=== PATIENT | female | born 1940 | race Caucasian/White ===

== ENCOUNTER 2022-03-20 08:13 | Outpatient (CLI) | payer MEDICARE, OTHER ==
--- NOTE | 2022-03-20 09:56 | Ultrasound Report ---
PROCEDURE: Abdomen Limited INDICATIONS: RUQ ABD PAIN TECHNIQUE: Real-time focused scanning was performed of the abdomen, with image documentation. COMPARISON: None FINDINGS: Liver measures 11 to 12 cm. Overall echogenicity is heterogeneous and increased. Main port al vein is patent. Gallbladder within normal limits. CBD measures up to 6 mm, within normal limits. Visualized pancreas unremarkable, limited visualization due to bowel gas. Right kidney measures 10.4 cm. Suspected 5 mm right upper pole stone. No significant hydronephrosis. IMPRESSION: Unremarkable sonographic appearance of the gallbladder. No pathologic dilation of the biliary tree fo r age. Mildly coarsened echogenic liver may be seen with chronic fibrofatty infiltration. Main portal vein i s patent. Suspected right upper pole renal 5 mm calculus without hydronephrosis. Reviewed by: Scot Islas MD on 03/20/2022 9:54 AM PST Approved by: Scot Islas MD on 03/20/2022 9:54 AM PST Station ID: [id number]
== END 2022-03-20 08:14 | disposition home or self-care (01) ==
LOC: DI 08:13
PROVIDERS: ATTEND Student in an Organized Health Care Education/Training Program
DX: R10.11 Right upper quadrant pain (principal)

== ENCOUNTER 2022-04-23 11:09 | Outpatient (CLI) | payer MEDICARE, OTHER | END 2022-04-23 11:10 | disposition home or self-care (01) | LOC: RT 11:09 | PROVIDERS: ATTEND Student in an Organized Health Care Education/Training Program | DX: R05.9 Cough, unspecified (principal); R06.02 Shortness of breath | CPT/HCPCS: 94010; 94727; 94729 ==

== ENCOUNTER 2023-02-05 12:29 | Outpatient (CLI) | payer MEDICARE, OTHER ==
--- NOTE | 2023-02-05 13:14 | XRAY Report ---
PROCEDURE: Hip w/Pelvis 2-3V LT INDICATIONS: LEFT HIP PAIN TECHNIQUE: AP pelvis with lateral view(s) of the left hip(s). COMPARISON: None. FINDINGS: Bones: No fractures or dislocations. Mild degenerative changes of the bilateral hips. No suspicious bony lesions. Soft tissues: No suspicious soft tissue calcifications or masses. IMPRESSION: No acute bony abnormality. Mild degenerative changes of the bilateral hips. Reviewed by: Duy Bhagat MD on 02/05/2023 1:12 PM PST Approved by: Duy Bhagat MD on 02/05/2023 1:12 PM PST Station ID: [id number]
== END 2023-02-05 12:30 | disposition home or self-care (01) ==
LOC: DI 12:29
PROVIDERS: ATTEND Nurse Practitioner Family
DX: M16.0 Bilateral primary osteoarthritis of hip (principal)

== ENCOUNTER 2023-04-23 11:03 | Outpatient (CLI) | payer MEDICARE, OTHER ==
--- NOTE | 2023-04-23 19:41 | XRAY Report ---
PROCEDURE: Chest 2V INDICATIONS: CHRONIC COUGH TECHNIQUE: 2 views of the chest were obtained. COMPARISON: None. FINDINGS: Surgical changes and devices: None. Lungs and pleura: No pleural effusions or pneumothorax. Lungs are clear. Mediastinum: Mediastinal contours appear normal. Heart size is normal. Bones and chest wall: No suspicious bony lesions. Overlying soft tissues appear unremarkable. IMPRESSION: No acute cardiopulmonary findings Reviewed by: Niles Patel MD on 04/23/2023 6:39 PM [facility] Approved by: Niles Patel MD on 04/23/2023 6:39 PM [place] Station ID: [id number]
== END 2023-04-23 11:04 | disposition home or self-care (01) ==
LOC: DI 11:03
PROVIDERS: ATTEND Nurse Practitioner Family
DX: R05.3 Chronic cough (principal)

== ENCOUNTER 2023-05-29 18:38 | Outpatient (CLI) | payer MEDICARE, OTHER | END 2023-05-29 23:59 | disposition short-term general hospital (02) | LOC: EMS 18:38 | DX: M25.512 Pain in left shoulder (principal); M79.675 Pain in left toe(s); W01.0XXA Fall on same level from slipping, tripping and stumbling without subsequent striking against object, initial encounter; Y93.01 Activity, walking, marching and hiking; Y92.009 Unspecified place in unspecified non-institutional (private) residence as the place of occurrence of the external cause | CPT/HCPCS: A0425; A0427 ==